=== PATIENT | female | born 2000 | race Two or more races ===

== ENCOUNTER 2024-08-13 19:32 | Emergency (ER) | payer MEDICAID, SELFPAY ==
[2024-08-13 19:34] VITALS: PULSE 97; RESP 21; O2SAT 99; BMI 29.9
--- NOTE | 2024-08-13 19:55 | PC.NURSE ---
PPD SPEAKING WITH PT AT THIS TIME.
[2024-08-13 20:16] VITALS: BP 124/84; PULSE 67; RESP 17; TEMP 36.7; O2SAT 100
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
[2024-08-13] MEDS: HYDROcodone/APAP 5/325 TABLET 1 TAB PO (20:19)
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
== END 2024-08-13 22:42 | disposition home or self-care (01) ==
PROVIDERS: Emergency Provider Emergency Medicine; PCP Physician Assistant
DX: S80.11XA Contusion of right lower leg, initial encounter (principal); V89.2XXA Person injured in unspecified motor-vehicle accident, traffic, initial encounter
CPT/HCPCS: 73562; 73590; 99283; A9270